=== PATIENT | male | born 1985 | race Caucasian/White ===

== ENCOUNTER → 2018-11-01 | Outpatient (CLI) | payer OTHER | END | disposition home or self-care (01) | LOC: WOUND 13:14 | PROVIDERS: ATTEND Internal Medicine | DX: T81.89XA Other complications of procedures, not elsewhere classified, initial encounter (principal); J45.909 Unspecified asthma, uncomplicated; Y83.8 Other surgical procedures as the cause of abnormal reaction of the patient, or of later complication, without mention of misadventure at the time of the procedure; Y92.89 Other specified places as the place of occurrence of the external cause | CPT/HCPCS: 97597; 99215 ==

== ENCOUNTER → 2018-11-08 | Outpatient (CLI) | payer OTHER | END | disposition home or self-care (01) | LOC: WOUND 10:07 | PROVIDERS: ATTEND Internal Medicine | DX: T81.89XD Other complications of procedures, not elsewhere classified, subsequent encounter (principal); L02.31 Cutaneous abscess of buttock; J45.909 Unspecified asthma, uncomplicated; Y83.8 Other surgical procedures as the cause of abnormal reaction of the patient, or of later complication, without mention of misadventure at the time of the procedure | CPT/HCPCS: 97597 ==

== ENCOUNTER → 2018-11-15 | Outpatient (CLI) | payer OTHER | END | disposition home or self-care (01) | LOC: WOUND 09:53 | PROVIDERS: ATTEND Internal Medicine | DX: T81.89XD Other complications of procedures, not elsewhere classified, subsequent encounter (principal); L02.31 Cutaneous abscess of buttock; J45.909 Unspecified asthma, uncomplicated; Y83.8 Other surgical procedures as the cause of abnormal reaction of the patient, or of later complication, without mention of misadventure at the time of the procedure | CPT/HCPCS: 97597 ==

== ENCOUNTER 2019-02-25 08:45 | Emergency (ER) | payer OTHER ==
[~2019-02-25] VITALS: Ht 170.2 cm; Wt 101.7 kg
[2019-02-25 08:53] VITALS: BP 137/84
== END 2019-02-25 09:54 | disposition home or self-care (01) ==
LOC: ED 09:35
DX: Z77.21 Contact with and (suspected) exposure to potentially hazardous body fluids (principal)
CPT/HCPCS: 36415; 80074; 87389; 99283